=== PATIENT | female | born 1945 | race Caucasian/White ===

== ENCOUNTER 2022-09-22 10:46 | Outpatient (CLI) | payer MEDICARE, MEDICAID ==
[~2022-09-22 10:46] MED LIST: ACET-3068 PO; ALPR-624 PO; ATEN-169 PO; CARI350T PO; CELE-193 PO; DEXL60CA3 PO; ESTR0.6216 PO; FERR142T6 PO; FURO-150 PO; LISI-222 PO; MECL12.5 PO; METF-436 PO; OXYC5TAB PO; POTA8TAB46 PO; RES15C PO
[2022-09-22 11:31] LABS: ALBUMIN 3.6 G/DL (3.4-5.0); ANION GAP 10 (8-16); BLOOD UREA NITROGEN 21 MG/DL (7-18); BUN/CREATININE RATIO 17.2 (10.0-20.0); CALCIUM 9.1 MG/DL (8.5-10.1); CHLORIDE 103 MMOL/L (99-107); CREATININE 1.22 MG/DL (0.40-0.90); GLUCOSE 110 MG/DL (70-104); POTASSIUM 3.7 MMOL/L (3.5-5.1); PRO BRAIN NATRIURETIC PEPTIDE 263 PG/ML (0-450); SODIUM 141 MMOL/L (135-145); TOTAL CARBON DIOXIDE 27.9 MMOL/L (24-32); eGFR 43 ML/MIN
== END 2022-09-22 23:59 | disposition home or self-care (01) ==
LOC: LAB 10:46
PROVIDERS: ATTEND Internal Medicine Cardiovascular Disease
DX: I25.119 Atherosclerotic heart disease of native coronary artery with unspecified angina pectoris (principal); R06.02 Shortness of breath
CPT/HCPCS: 36415; 80048; 83880; 84484